=== PATIENT | male | born 1980 | race Two or more races ===

== ENCOUNTER 2016-05-14 00:54 | Emergency (ER) | payer SELFPAY ==
[~2016-05-14] VITALS: Ht 162.6 cm; Wt 61.2 kg
[2016-05-14] MEDS ORDERED: LORazepam Inj 2mg/ml 1ml IM ONE (01:15)
--- NOTE | 2016-05-14 02:00 | Emergency Room Report ---
History of Present Illness General Chief Complaint: Overdose Source: Patient Present Illness HPI Is a 35-year-old male brought in by police and EMS for agitation. He was wandering on the street and 911 was called. Does admit to using methamphetamine tonight. Fell agitated. Denies any suicidal thought or homicidal thought. No other injury. No other drug use. Allergies: Coded Allergies: HALOPERIDOL (Verified Allergy, Unknown, 05/14/16) Patient History Past Medical History: see triage record, old chart reviewed, psych hx Past Surgical History: none Pertinent Family History: none Social History: Reports: drug use Immunizations: other Reviewed Nursing Documentation: PMH: Agreed, PSxH: Agreed Review of Systems Eye: Denies: blurred vision, eye pain ENT: Denies: ear pain, nose congestion, throat swelling Respiratory: Denies: cough, shortness of breath Cardiovascular: Denies: chest pain, palpitations Gastrointestinal: Denies: abdominal pain, diarrhea, nausea, vomiting Musculoskeletal: Denies: back pain, joint pain Skin: Denies: rash Neurological: Denies: headache, numbness Endocrine: Denies: increased thirst, increased urine Hematologic/Lymphatic: Denies: easy bruising All Other Systems: negative except mentioned in HPI Physical Exam vitals with tachycardia Vital Signs Date Time Temp Pulse Resp B/P Pulse Ox O2 Delivery O2 Flow Rate FiO2 05/14/16 00:43 98.1 120 20 129/83 98 Room Air Sp02 EP Interpretation: reviewed, normal General Appearance: well appearing, no apparent distress, alert Head: normocephalic, atraumatic Eyes: bilateral eye EOMI, bilateral eye PERRL ENT: hearing grossly normal, normal pharynx Neck: full range of motion, supple, no meningismus Respiratory: chest non-tender, lungs clear, normal breath sounds Cardiovascular #1: regular rate, rhythm, no murmur Gastrointestinal: normal bowel sounds, non tender, no mass, no organomegaly, no bruit, non-distended Musculoskeletal: back normal, gait/station normal, normal range of motion Psychiatric: other - Agitated, anxious, jittery Skin: warm/dry Medical Decision Making Diagnostic Impression: Primary Impression: Psychosis Qualified Codes: F23 - Brief psychotic disorder Additional Impression: Methamphetamine abuse ER Course Patient presents with a drug-induced psychosis and agitation. Better after Ativan. He does not want to stay or have rn social work consult. We'll discharge home in the morning. I see no criteria for 5150. This patient is a chronic risk of self injury due to poor impulse control, limited coping skills, and judgment intermittently impaired by intoxication. I believe that the available clinical evidence to suggest that these characteristics derived primarily from personality disorder and are likely very stable over time. Hospitalization would likely attenuate risk of self-harm only during retirement period, without lasting risk reduction. Serious self-harm , while possible, would likely be inadvertent, and because of impulsivity, and foreseeable. For these reasons, I do not believe hospitalization would provide meaningful reduction in risk of self-harm. Last Vital Signs Date Time Temp Pulse Resp B/P Pulse Ox O2 Delivery O2 Flow Rate FiO2 05/14/16 00:58 120 20 Room Air 05/14/16 00:43 98.1 129/83 98 Status: improved Disposition: HOME, SELF-CARE Condition: Stable Referrals: NOT CHOSEN IPA/,REFERRING (PCP) Additional Instructions: Abstain from drugs and alcohol. Followup with your Dr. in 2-3 days. Return if worse. [place] M.D. May 14, 2016 02:00
[2016-05-14 03:00] VITALS: BP 113/72
[2016-05-14 05:49] VITALS: BP 103/68
[2016-05-14 06:08] VITALS: BP 103/68
== END 2016-05-14 06:09 | disposition home or self-care (01) ==
LOC: EDBD 00:54 → EMR 01:15
DX: F23 Brief psychotic disorder (principal); F15.10 Other stimulant abuse, uncomplicated; Z88.8 Allergy status to other drugs, medicaments and biological substances
CPT/HCPCS: 96372; 99283